=== PATIENT | female | born 1985 | race African-American/Black ===

== ENCOUNTER 2017-08-01 15:58 | Emergency (ER) | payer SELFPAY ==
[~2017-08-01] VITALS: Ht 162.6 cm; Wt 60.0 kg
[2017-08-01 16:04] VITALS: BP 144/90; PULSE 97; RESP 24; TEMP 99.1; O2SAT 97
[2017-08-01 16:28] VITALS: BP 132/69; PULSE 79; RESP 16; TEMP 98.3; O2SAT 100
--- NOTE | 2017-08-01 17:21 | PD ---
HPI Chief Complaint: Medical Clearance Time Seen by Provider: 16:49 Travel History International Travel<30 days: No Contact w/Intl Traveler<30days: No Traveled to known affect area: No History of Present Illness HPI Patient is a 32-year-old female presenting to the emergency department with multiple vague medical complaints. Patient reports a history of schizophrenia and bipolar disorder, she is not currently on any medications. She states that her ears are plugged and feels like the ringing. She reports low back pain and leg pain at times but she does not have this now. She reports occasional epigastric abdominal pain but again she does not have this complaint right now. Patient reports auditory hallucinations and stated that she lied to people and she's been bad that's why she is here. Patient states she is from [place] and does not know how she got here. PFSH Past Medical History Bipolar Disorder: Yes Diminished Hearing: No Schizophrenia: Yes Tetanus Vaccination: Unknown Influenza Vaccination: No ?: Not LMP: UNKNOWN Past Surgical History Surgical History: No Previous Surgery Social History Alcohol Use: No Tobacco Use: No Substance Use: No Allergies-Medications (Allergen,Severity, Reaction): Coded Allergies: No Known Allergies (Unverified , 08/01/17) Reported Meds & Prescriptions Reported Meds & Active Scripts Active Metronidazole 500 Mg Tab 500 Mg PO BID Review of Systems Except as stated in HPI: all other systems reviewed are Neg General / Constitutional: No: Fever HENT: No: Headaches, Lightheadedness Cardiovascular: No: Chest Pain or Discomfort Respiratory: No: Shortness of Breath Gastrointestinal: No: Nausea, Vomiting, Abdominal Pain Genitourinary: No: Dysuria Musculoskeletal: No: Myalgias Neurologic: No: Weakness Psychiatric: Positive: Disorder of Thought, No: Suicidal Ideations, Homicidal Ideation Physical Exam Narrative GENERAL: Thin, well-developed, alert female. Resting comfortably in no acute distress. SKIN: Warm and dry. HEAD: Atraumatic. Normocephalic. EYES: Pupils equal and round. No scleral icterus. No injection or drainage. ENT: No nasal bleeding or discharge. Mucous membranes pink and moist. NECK: Trachea midline. No JVD. CARDIOVASCULAR: Regular rate and rhythm. RESPIRATORY: No accessory muscle use. Clear to auscultation. Breath sounds equal bilaterally. GASTROINTESTINAL: Abdomen soft, non-tender, nondistended. Hepatic and splenic margins not palpable. MUSCULOSKELETAL: Extremities without clubbing, cyanosis, or edema. No obvious deformities. GENITOURINARY: Normal external genitalia without lesions or erythema. Vaginal vault without blood, small amount of yellow/green drainage in vault. Cervical os was closed without drainage. No cervical motion tenderness. Uterus nontender and nonenlarged. Bilateral adnexa nontender without masses. NEUROLOGICAL: Awake and alert. No obvious cranial nerve deficits. Motor grossly within normal limits. Five out of 5 muscle strength in the arms and legs. Normal speech. PSYCHIATRIC: Appropriate mood and affect; insight and judgment. Disorganized thought process. Data Data Last Documented VS Vital Signs Date Time Temp Pulse Resp B/P (MAP) Pulse Ox O2 Delivery O2 Flow Rate FiO2 08/01/17 16:31 16 08/01/17 16:29 82 08/01/17 16:28 98.3 132/69 (90) 100 Room Air Orders Orders Complete Blood Count With Diff (08/01/17 16:37) Comprehensive Metabolic Panel (08/01/17 16:37) Urinalysis - C+S If Indicated (08/01/17 16:37) Psych Screen (08/01/17 16:37) Drug Screen, Random Urine (08/01/17 16:37) Gc And Chlamydia Pcr (08/01/17 18:31) Wet Prep Profile (08/01/17 18:31) Metronidazole (Flagyl) (08/01/17 19:45) Ibuprofen (Motrin) (08/01/17 19:45) Labs Laboratory Tests Test 08/01/17 16:55 08/01/17 18:45 White Blood Count 9.3 TH/MM3 Red Blood Count 3.90 MIL/MM3 Hemoglobin 9.2 GM/DL Hematocrit 29.7 % Mean Corpuscular Volume 76.1 FL Mean Corpuscular Hemoglobin 23.7 PG Mean Corpuscular Hemoglobin Concent 31.1 % Red Cell Distribution Width 23.1 % Platelet Count 391 TH/MM3 Mean Platelet Volume 7.6 FL Neutrophils (%) (Auto) 57.4 % Lymphocytes (%) (Auto) 30.6 % Monocytes (%) (Auto) 7.9 % Eosinophils (%) (Auto) 2.8 % Basophils (%) (Auto) 1.3 % Neutrophils # (Auto) 5.4 TH/MM3 Lymphocytes # (Auto) 2.9 TH/MM3 Monocytes # (Auto) 0.7 TH/MM3 Eosinophils # (Auto) 0.3 TH/MM3 Basophils # (Auto) 0.1 TH/MM3 CBC Comment AUTO DIFF Differential Comment AUTO DIFF CONFIRMED Platelet Estimate NORMAL Platelet Morphology Comment NORMAL Red Cell Morphology Comment NORMAL Urine Color YELLOW Urine Turbidity HAZY Urine pH 5.5 Urine Specific Malcom 1.026 Urine Protein 30 mg/dL Urine Glucose (UA) NEG mg/dL Urine Ketones 40 mg/dL Urine Occult Blood MOD Urine Nitrite NEG Urine Bilirubin NEG Urine Urobilinogen 2.0 MG/DL Urine Leukocyte Esterase NEG Urine RBC 160 /hpf Urine WBC 3 /hpf Urine Squamous Epithelial Cells 3 /hpf Urine Bacteria RARE /hpf Urine Mucus MOD /lpf Microscopic Urinalysis Comment CULT NOT INDICATED Blood Urea Nitrogen 15 MG/DL Creatinine 0.69 MG/DL Random Glucose 86 MG/DL Total Protein 7.3 GM/DL Albumin 3.9 GM/DL Calcium Level 8.4 MG/DL Alkaline Phosphatase 47 U/L Aspartate Amino Transf (AST/SGOT) 35 U/L Alanine Aminotransferase (ALT/SGPT) 21 U/L Total Bilirubin 0.6 MG/DL Sodium Level 136 MEQ/L Potassium Level 3.8 MEQ/L Chloride Level 103 MEQ/L Carbon Dioxide Level 22.1 MEQ/L Anion Gap 11 MEQ/L Estimat Glomerular Filtration Rate 119 ML/MIN Urine Opiates Screen NEG Urine Barbiturates Screen NEG Urine Amphetamines Screen NEG Urine Benzodiazepines Screen NEG Urine Cocaine Screen NEG Urine Cannabinoids Screen POS Clue Cells (Wet Prep) PRESENT Vaginal Trichomonas (Wet Prep) NONE SEEN Vaginal Yeast (Wet Prep) NONE SEEN MDM Medical Decision Making Medical Screen Exam Complete: Yes Emergency Medical Condition: Yes Interpretation(s) Vital Signs Date Time Temp Pulse Resp B/P (MAP) Pulse Ox O2 Delivery O2 Flow Rate FiO2 08/01/17 16:31 16 08/01/17 16:29 82 16 08/01/17 16:28 98.3 79 16 132/69 (90) 100 Room Air 08/01/17 16:04 99.1 97 24 144/90 (108) 97 Room Air Differential Diagnosis Metabolic abnormality versus UTI versus psychosis versus schizophrenia versus other Narrative Course Patient is a 32-year-old female presenting to emergency department with multiple vague medical complaints. She did report a psychiatric history of schizophrenia and bipolar disorder. Her thoughts appear disorganized and she reports being bad and lying to people which is why she is here. Labs ordered and pending, psych screen ordered to assess patient. She does not feel suicidal or homicidal. Labs reviewed, no acute abnormalities identified, patient is mildly anemic and she has blood in her urine. Patient was questioned regarding whether or not she was on her menstrual cycle. She reports that she is not, but has had vaginal discharge for the last few days that is foul-smelling. GC and chlamydia, wet prep ordered and pending. Wet prep was positive for clue cells, patient given first dose of metronidazole emergency department. Patient denies being sexually active, we'll defer treatment for chlamydia and gonorrhea until results are available. Patient is medically cleared for psychiatric evaluation at this time. Patient declines psychiatric evaluation. Again patient is not suicidal or homicidal and she was given a prescription for metronidazole to complete full course of therapy. Patient Trung Ventura has decided to leave the hospital against medical advice. This patient has the capacity to refuse care and understands the risks of leaving, including permanent disability and/or , and has had an opportunity to ask questions about her condition. The patient has been informed that she may return for care at any time, and follow up has been arranged/ advised. Diagnosis Primary Impression: Bacterial vaginosis Med/Other Pt SpecificInfo: Prescription(s) given Scripts Metronidazole (Metronidazole) 500 Mg Tab 500 MG PO BID for Infection, #14 TAB 0 Refills Prov: Angelita Sullivan 08/01/17 Disposition: 07 AGAINST MEDICAL ADVICE Angelita Sullivan Aug 01, 2017 17:21
[2017-08-01 17:25] LABS: AUTOMATED NEUTROPHIL # 5.4 TH/MM3 (1.8-7.7); BASOPHIL # 0.1 TH/MM3 (0-0.2); BASOPHIL % 1.3 % (0.0-2.0); EOSINOPHIL # 0.3 TH/MM3 (0-0.4); EOSINOPHIL % 2.8 % (0.0-4.0); HEMATOCRIT 29.7 % (35.0-46.0); LYMPH % 30.6 % (9.0-44.0); LYMPHOCYTE # 2.9 TH/MM3 (1.0-4.8); MEAN CELL VOLUME 76.1 FL (80.0-100.0); MEAN CORPUSCULAR HEMOGLOBIN 23.7 PG (27.0-34.0); MEAN CORPUSCULAR HGB CONC 31.1 % (32.0-36.0); MONO % 7.9 % (0.0-8.0); NEUT % 57.4 % (16.0-70.0); PLATELET COUNT 391 TH/MM3 (150-450); RED CELL DISTRIBUTION WIDTH 23.1 % (11.6-17.2); WHITE BLOOD COUNT 9.3 TH/MM3 (4.0-11.0)
[2017-08-01 17:29] LABS: HEMO FLAGS AUTO DIFF
[2017-08-01 17:36] LABS: ANION GAP 11 MEQ/L (5-15); AST (GOT) 35 U/L (15-37); BICARBONATE 22.1 MEQ/L (21.0-32.0); BLOOD UREA NITROGEN 15 MG/DL (7-18); CHLORIDE 103 MEQ/L (98-107); GLOMERULAR FILTRATION RATE 119 ML/MIN (>89); POTASSIUM 3.8 MEQ/L (3.5-5.1); SODIUM (NA) 136 MEQ/L (136-145)
[2017-08-01 17:37] LABS: ALT (GPT) 21 U/L (10-53)
[2017-08-01 17:39] LABS: ALKALINE PHOSPHATASE 47 U/L (45-117); TOTAL BILIRUBIN ADULT 0.6 MG/DL (0.2-1.0)
[2017-08-01 17:45] LABS: BACTERIA, URINE RARE /hpf; BLOOD, URINE MOD (NEG); GLUCOSE,URINE NEG (NEG); KETONE, URINE 40 mg/dL (NEG); MUCUS URINE MOD /lpf (OCC); NITRITE,URINE NEG (NEG); PH, URINE 5.5 (5.0-8.5); SQUAMOUS EPITHELIAL CELL URINE 3 /hpf (0-5); URINE COLOR YELLOW (YELLW/STRAW)
[2017-08-01 17:46] LABS: COMMENT (UR) CULT NOT INDICATED; CULTURE IF INDICATED CULT NOT INDICATED
[2017-08-01 18:13] LABS: PLATELET ESTIMATE SMEAR NORMAL (NORMAL); PLATELET MORPHOLOGY NORMAL (NORMAL); SCAN/DIFF AUTO DIFF CONFIRMED
[2017-08-01] MEDS ORDERED: METR500T10 PO (19:35)
[2017-08-01] MEDS ORDERED: metroNIDAZOLE 500 MG TAB PO ONE (19:45)
[2017-08-01] MEDS ORDERED: IBUPROFEN 600 MG TAB PO ONE (19:45)
[2017-08-01 21:34] LABS: CHLAMYDIA PCR NOT DETECTED (NOT DETECT); NEISSERIA PCR NOT DETECTED (NOT DETECT)
== END 2017-08-01 20:01 | disposition left against medical advice (07) ==
LOC: NEPC 15:58
DX: N76.0 Acute vaginitis (principal); F20.9 Schizophrenia, unspecified; F31.9 Bipolar disorder, unspecified
CPT/HCPCS: 80053; 80307; 81001; 85025; 87210; 87491; 87591; 99283

== ENCOUNTER 2017-08-01 20:25 | Emergency (ER) | payer SELFPAY ==
[~2017-08-01 20:25] MED LIST: METR500T10 PO
[2017-08-01 20:27] VITALS: BP 129/79; PULSE 75; RESP 14; TEMP 98.4; O2SAT 98
--- NOTE | 2017-08-01 20:30 | PD ---
Physical Exam Date Seen by Provider: Aug 01, 2017 Time Seen by Provider: 20:29 [facility] Supervised Visit with AZUCENA: No Narrative Course 32 YO F with complaint of "my back is aching, my ear is not open, my head is spinning." Patient left the hospital AMA ~ 1-2 hours ago. Vitals stable. Patient seen in triage, awaiting bed placement. Yarely Moon Aug 01, 2017 20:30
--- NOTE | 2017-08-01 20:45 | PD ---
HPI Chief Complaint: Cold / Flu Symptoms Time Seen by Provider: 20:34 Travel History International Travel<30 days: No Contact w/Intl Traveler<30days: No Traveled to known affect area: No History of Present Illness HPI 32-year-old black female returns to the ER only after being discharged 2 hours prior with vague complaints of back pain and not feeling well. The patient is a very poor historian. She cannot relate any medical history. Review of systems she states that she feels lightheaded, dizzy and weak. She has some back pain with bending and movement. She denies any fever chills, ear pain, sore throat, cough, congestion, nausea, vomiting or abdominal. History Past Medical Histgory Narrative Medical Psych LMP: 07/26/17 Social History Alcohol Use: No Tobacco Use: No Allergies-Medications (Allergen,Severity, Reaction): Coded Allergies: No Known Allergies (Unverified , 08/01/17) Reported Meds & Prescriptions Reported Meds & Active Scripts Active Metronidazole 500 Mg Tab 500 Mg PO BID Review of Systems Except as stated in HPI: all other systems reviewed are Neg Physical Exam Narrative GENERAL: This is a well-nourished, well-developed patient, in no apparent distress. Patient's laying in examination room covered up under blankets and appears to be sleeping. SKIN: No rashes, ecchymoses or lesions. Warm and dry. HEAD: Atraumatic. Normocephalic. EYES: PERRL, EOMI, no discharge or injection. No scleral icterus. EARS: Clear NOSE: Nasal turbinates appear normal. THROAT: Mucosa pink and moist. Airway patent. NECK: Trachea midline. supple, moves head freely. LUNGS: Clear to auscultation. CV: Regular in rhythm. ABDOMEN: Soft nontender. EXT: No clubbing cyanosis or edema. Back: Patient is able to bend for to touch her toes. She has no central bony tenderness. No spasm. There is no skin breakdown or rashes. Data Data Last Documented VS Vital Signs Date Time Temp Pulse Resp B/P (MAP) Pulse Ox O2 Delivery O2 Flow Rate FiO2 08/01/17 20:27 98.4 75 14 129/79 (96) 98 Room Air MDM Medical Screen Exam Complete: Yes Emergency Medical Condition: No Differential Diagnosis Differential diagnoses: URI, back pain, malingering Narrative Course A medical screening exam was performed: At the time of evaluation the presenting medical condition was determined not to be of an emergent nature. The patient was given the option of receiving additional care, but declined. Patient was given options for additional community resources from which to obtain care. The Patient Has Been advised to seek medical attention for their presenting complaint. The patient has been advised to return to the ER at any time if an emergent condition develops. This is a 32-year-old black female who had just been seen earlier this afternoon. There is no acute medical conditions identified. I suspect she is malingering for a domicile for the evening. Primary Impression: Encounter for medical screening examination Condition: Abel Venegas Aug 01, 2017 20:45
== END 2017-08-01 20:52 | disposition left against medical advice (07) ==
LOC: NEPD 20:25
DX: R42 Dizziness and giddiness (principal)
CPT/HCPCS: 99281

== ENCOUNTER 2017-08-02 01:41 | Emergency (ER) | payer SELFPAY ==
[~2017-08-02] VITALS: Ht 170.2 cm; Wt 60.0 kg
[2017-08-02 01:52] VITALS: BP 132/80; PULSE 72; RESP 18; TEMP 98.2; O2SAT 100
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
== END 2017-08-02 02:05 | disposition left against medical advice (07) ==
LOC: NEDAMB 01:41 → NEPE 02:05
DX: R10.13 Epigastric pain (principal); M54.5 Low back pain
CPT/HCPCS: 99281

== ENCOUNTER 2017-08-02 09:16 | Emergency (ER) | payer OTHER ==
[~2017-08-02] VITALS: Ht 162.6 cm; Wt 62.0 kg
[2017-08-02 09:28] VITALS: BP 138/78; PULSE 77; RESP 16; TEMP 98.3; O2SAT 100
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
[2017-08-02 18:25] VITALS: BP 126/70; PULSE 67; RESP 16; O2SAT 98
[2017-08-03 03:00] VITALS: BP 111/64; PULSE 69; RESP 16; O2SAT 98
[2017-08-03 08:00] VITALS: BP 117/58; PULSE 88; RESP 14; TEMP 98.3; O2SAT 99
[2017-08-03 11:25] VITALS: BP 127/74; PULSE 93; RESP 18; O2SAT 98
[2017-08-03 14:30] VITALS: BP 108/72; PULSE 73; RESP 18
[2017-08-03 18:44] VITALS: BP 114/82; PULSE 93; RESP 18
[2017-08-04 01:57] VITALS: BP 113/60; PULSE 78; RESP 18; TEMP 98.3; O2SAT 100
[2017-08-04 05:57] VITALS: BP 98/54; PULSE 74; RESP 16; TEMP 98.2; O2SAT 99
--- NOTE | 2017-08-04 07:04 | PD.PSY.CON ---
Provisional Diagnosis Admission Date Date of consultation 08/04/2017 [place]. 1. Adjustment disorder, unspecified 2. Cannabis abuse [place]. Deferred History of Present Illness Service Psychiatry Consult Requested By ED Reason for Consult Perla Act Primary Care Physician No Primary Care Physician HPI Ms. Ventura is a 32-year-old female with a reported history of bipolar disorder and anxiety who presents under a Perla act from [place] [employer] alleging that the patient was found walking in the road and told officers that there is something in her back that lets people listen in on her conversation. Reviewing the electronic medical record, I see no prior psychiatric consultations or admissions within our system, although the patient was referred for psychiatric evaluation on 08/01 she left AGAINST MEDICAL ADVICE before this screening could be completed. Patient seen and examined. Chart reviewed. Case discussed with nursing staff. There has been no evidence of any psychotic material, nor has there been any evidence of any suicidality or violence while the patient has been under observation in the [facility]. On my examination this morning, the patient is calm and cooperative. She is clinically sober. She denies any suicidal or homicidal ideation, intent or plan on direct questioning and contracts for safety. She denies any persistent issues with low mood or elevated mood, nor can I elicit any depressive or hypomanic/manic symptoms at this time. She does not articulate a delusion about having a device in her back as alleged in the Perla Act, nor can I elicit any other frankly delusional material at this time. She does make a statement about feeling like there is something in her body, but this statement is so vague in its construction, even with follow up questioning, that it is unclear whether this represents a delusion or a jerrod wei somatic complaint. She denies any AVH or command AH at this time. The remainder of the psychiatric ROS is negative. The patient declines psychiatric hospitalization at this time but is agreeable to following up outpatient with psychiatry. She is requesting an outpatient psychiatric referral. Past psychiatric history: The patient reports a history of bipolar disorder and anxiety. She is not presently under the care of a psychiatrist. She says that she has been admitted in the distant past but can't recall exactly when. She endorses a remote history of suicide attempt by hanging. Family history: Patient is unsure of her family psychiatric history and says "that's their business." Chemical dependency history: The patient admits to ongoing use of cannabis. She says "I need it. It helps me concentrate." She also endorses occasional alcohol use. No other substance use reported. Social history: The patient has a ninth grade education. She does not work. She is not presently and has no children. She denies any legal problems. Denies any access to guns or firearms. She is presently without stable housing. Review of Systems Except as stated in HPI: all other systems reviewed are Neg Past Family Social History Coded Allergies: No Known Allergies (Unverified , 08/02/17) Past Medical History No reported medical issues. Discontinued Scripts Metronidazole (Metronidazole) 500 Mg Tab, 500 MG PO BID for Infection, #14 TAB 0 Refills Prov:NateAngelita 08/01/17 Patient's Strengths (min. 2) Able to access clinical care. Verbally fluent. Physical Exam Physical examination completed by the ED provider. On my examination today, the patient appears to be in no acute physical distress. She appears well- nourished and well-developed and appears to be attending to her basic needs. In particular, I note that her hair is well-kempt and her nails are freshly manicured. Labs and vitals reviewed: Vital Signs Vital Signs Date Time Temp Pulse Resp B/P (MAP) Pulse Ox O2 Delivery O2 Flow Rate FiO2 08/04/17 05:57 98.2 74 16 98/54 (69) 99 Room Air Lab Results Laboratories not perform this visit but they were recently performed on 08/01: Item Value Date Time White Blood Count 9.3 TH/MM3 08/01/17 1655 Hemoglobin 9.2 GM/DL L 08/01/17 1655 Platelet Count 391 TH/MM3 08/01/17 1655 Sodium Level 136 MEQ/L 08/01/17 1655 Potassium Level 3.8 MEQ/L 08/01/17 1655 Chloride Level 103 MEQ/L 08/01/17 1655 Carbon Dioxide Level 22.1 MEQ/L 08/01/17 1655 Blood Urea Nitrogen 15 MG/DL 08/01/17 1655 Creatinine 0.69 MG/DL 08/01/17 1655 Aspartate Amino Transf (AST/SGOT) 35 U/L 08/01/17 1655 Alanine Aminotransferase (ALT/SGPT) 21 U/L 08/01/17 1655 Alkaline Phosphatase 47 U/L 08/01/17 1655 Urine Cannabinoids Screen POS H 08/01/17 1655 Mental Status Examination No motor abnormalities noted Appearance In hospital gown. Well-groomed. Speech: Unremarkable Orientation: x3 Memory: Unremarkable Thought Process: Circumstantial Thought Content: Other (no joseph delusions) Language Unremarkable Fund of Knowledge Average Hallucination Type: None (no AVH) Attention and Concentration: Other (fair) Suicidal Ideation: No Previous Suicide Attempts: Yes Homicidal Ideation: No Previous Homicide Attempts: No Insight: Fair Judgment: Poor Affect: Other (somewhat blunted) Mood: Other (denies issues with mood) Assessment & Plan Problem List: (1) Adjustment disorder ICD Codes: F43.20 - Adjustment disorder, unspecified Status: Acute (2) Cannabis abuse ICD Codes: F12.10 - Cannabis abuse, uncomplicated Status: Acute Assessment & Plan 32-year-old female psychiatric history as detailed above who presents under a Perla act. On my examination today, patient describes a history of psychiatric illness but does not describe any clear-cut current symptomatology of same. She does admit to substance use, and some of her previous psychiatric symptoms may be substance-related. She denies any suicidal or homicidal ideation, intent or plan on direct questioning and contracts for safety. There is no severely unstable mental illness as defined under the Perla act in this patient at this time that I can discern. She appears to be attending to her basic needs. She is agreeable and in fact desirous of following up with psychiatry on an outpatient basis but is not interested in psychiatric hospitalization at this time. Synthesizing this information and weighing the relevant factors I upholstery parts sorter that the patient does not presently meet the Perla act criteria. I lifted the Perla act. I have recommended that the patient follow up with outpatient psychiatry and the nurse will provide the appropriate referrals as well as homeless resources. I have counseled the patient to abstain from abuse of drugs or alcohol. I have counseled the patient regarding warning signs for need to return to the psychiatric emergency room as part of the general safety plan. The patient is otherwise psychiatrically clear for discharge from the ED. Thank you very much for this consultation. Request HC Surrog/Guard Advoc?: No Problem Qualifiers (1) Adjustment disorder: Qualified Codes: F43.20 - Adjustment disorder, unspecified Giovani Hong MD Aug 04, 2017 07:04
[2017-08-04] MEDS ORDERED: ACETAMINOPHEN 325 MG TAB PO ONE (07:15)
--- NOTE | 2017-08-04 07:21 | PD ---
Physical Exam Time Seen by Provider: 07:[address] Hong has evaluated the patient, lifted the Perla act and the patient will be discharged home. Data Data Last Documented VS Vital Signs Date Time Temp Pulse Resp B/P (MAP) Pulse Ox O2 Delivery O2 Flow Rate FiO2 08/04/17 05:57 98.2 74 16 98/54 (69) 99 Room Air Orders Orders Psych Screen (08/02/17 09:50) Diet Regular Basic (08/02/17 Breakfast) Diet Regular Basic (08/02/17 Dinner) Diet Regular Basic (08/03/17 Dinner) Diet Regular Basic (08/04/17 Breakfast) Acetaminophen (Tylenol) (08/04/17 07:15) MDM Supervised Visit with [facility]: No Narrative Course Dr. Hong has evaluated the patient, lifted the Perla act and the patient will be discharged home. Patient contracts for safety. Denies suicidal or homicidal ideations. Patient will be provided community resource packet to [facility]/ [facility] for follow-up. Has friends and family for support. Patient is medically cleared for discharge. Diagnosis Primary Impression: Psychiatric complaint Additional Impressions: Cannabis abuse Adjustment disorder Qualified Codes: F43.20 - Adjustment disorder, unspecified Referrals: [facility] (Out patient) call for appointment Patient Instructions: General Instructions, Stress (ED), Cannabis Abuse (ED) Departure Forms: Tests/Procedures Additional Instruction: Contract safety to your self and others Follow-up with psychiatry Follow-up with primary care provider Follow-up with [facility] Return to the emergency department immediately with worsening of symptoms Med/Other Pt SpecificInfo: No Meds Exist/No RX given Scripts No Active Prescriptions or Reported Meds Disposition: 01 DISCHARGE HOME Condition: Stable Ciara De Dios Aug 04, 2017 07:21
[2017-08-04 08:43] VITALS: BP 98/54; PULSE 74; RESP 16; O2SAT 99
== END 2017-08-04 09:03 | disposition home or self-care (01) ==
LOC: NEPD 09:16 → NEPJ 08-04 09:03
DX: F43.20 Adjustment disorder, unspecified (principal); F12.10 Cannabis abuse, uncomplicated; M54.5 Low back pain
CPT/HCPCS: 99284